=== PATIENT | male | born 1980 | race African-American/Black ===

== ENCOUNTER 2020-11-11 07:33 | Emergency (ER) | payer OTHER ==
[~2020-11-11] VITALS: Ht 182.9 cm; Wt 104.5 kg
[2020-11-11] MEDS ORDERED: NEXIUM40 M2 PO (07:47)
[2020-11-11] MEDS ORDERED: BYSTOLIC10 MG PO (07:47)
[2020-11-11] MEDS ORDERED: TOPAMAX100 MG PO (07:48)
[2020-11-11] MEDS ORDERED: BUSPIRONE HCL10 MG PO (07:48)
[2020-11-11 08:10] LABS: ABSOLUTE EOSINOPHILS 0.1 thou/uL (0.0-0.7); ABSOLUTE LYMPHOCYTES 2.1 thou/uL (0.8-5.3); ABSOLUTE MONOCYTES 0.4 thou/uL (0.0-1.2); BASOPHILS 0.5 %; EOSINOPHILS 1.6 %; HEMATOCRIT 42.4 % (42.0-52.0); HEMOGLOBIN 14.4 gm/dL (14.0-18.0); LYMPHOCYTES 31.5 %; MCH 29.9 pg (26.0-34.0); MCHC 34.1 g/dL (28.0-37.0); MCV 87.9 fL (80.0-100.0); MONOCYTES 6.7 %; MPV 7.2 fl. (7.2-11.1); NUCLEATED RBCS 0 /100WBC; PLATELET COUNT* 264 thou/uL (150-400); POLYS 59.7 %; RBC 4.82 mil/uL (4.50-6.00); RDW-CV 14.1 % (10.5-14.5); WBC 6.6 thou/uL (4.0-11.0)
[2020-11-11 08:19] LABS: ANION GAP 9 mmol/L (7-16); BUN 10 mg/dL (7-18); CHLORIDE 109 mmol/L (98-107); CO2 26 mmol/L (21-32); CREATININE 1.2 mg/dL (0.6-1.3); GLUCOSE 81 mg/dL (70-99); POTASSIUM 3.6 mmol/L (3.5-5.1); SODIUM 144 mmol/L (136-145)
[2020-11-11 08:30] LABS: ALBUMIN 3.5 g/dL (3.4-5.0); ALKALINE PHOSPHATASE 73 U/L (46-116); APTT 25.1 Seconds (25.0-31.3); INR 0.9; LIPASE 105 U/L (73-393); MAGNESIUM 2.3 mg/dL (1.8-2.4); NT-PRO BRAIN NAT PEPTIDE 72 pg/mL (<300); SGOT 15 U/L (15-37); SGPT 28 U/L (30-65); TOTAL BILIRUBIN < 0.1 mg/dL (<0.1-1.0); TOTAL PROTEIN 7.3 g/dL (6.4-8.2)
[2020-11-11 11:05] VITALS: BP 137/86
--- NOTE | 2020-11-13 13:43 | EKG ---
[place] [address] ELECTROCARDIOGRAM REPORT Name: CRISTINA MA Room: [facility]#: [id number] Admission: 11/11/20 Attend Phys: Discharge: 11/11/20 Date of : 84 Date of Service: 11/11/20 0738 Report #: [id number] THIS REPORT FOR: //name// [facility] ED Test Date: 2020-11-11 Test Time: 07:38:02 Pat Name: CRISTINA MA Department: Room: Gender: Stonehand: ALON : 1980 Requested By: Ayo Fletcher Order Number: [id number] MD: Raciel Cornejo Measurements Intervals [place] Rate: 85 P: 40 [place]: 139 QRS: 23 QRSD: 84 T: -6 QT: 341 QTc: 406 Interpretive Statements Sinus rhythm Baseline wander in lead(s) V3 No previous ECG available for comparison Electronically Signed On 11-13-2020 13:42:49 [employer]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
--- NOTE | 2020-11-13 13:43 | EKG ---
[place] [address] ELECTROCARDIOGRAM REPORT Name: CRISTINA MA Room: [facility]#: [id number] Admission: 11/11/20 Attend Phys: Discharge: 11/11/20 Date of : 84 Date of Service: 11/11/20 0946 Report #: [id number] THIS REPORT FOR: //name// [facility] ED Test Date: 2020-11-11 Test Time: 09:46:16 Pat Name: CRISTINA MA Department: Room: Gender: Podiatric Physician: ALON : 1980 Requested By: Ayo Fletcher Order Number: [id number] MD: Raciel Cornejo Measurements Intervals [place] Rate: 65 P: 13 [place]: 139 QRS: 28 QRSD: 84 T: 3 QT: 370 QTc: 385 Interpretive Statements Sinus rhythm Baseline wander in lead(s) V2 Compared to ECG 11/11/2020 07:38:02 No significant changes Electronically Signed On 11-13-2020 13:43:36 CUT OUT STITCHER by Raciel Cornejo [email or web address] <ELECTRONICALLY SIGNED> By: Raciel Cornejo MD, [facility] 11/13/20 1343 0946 0946 Raciel Cornejo MD, [facility] /EPI
== END 2020-11-11 11:07 | disposition left against medical advice (07) ==
LOC: M.ERS 07:33
PROVIDERS: Emergency Medicine Emergency Medical Services
DX: R07.89 Other chest pain (principal); I10 Essential (primary) hypertension; K21.9 Gastro-esophageal reflux disease without esophagitis; Z88.6 Allergy status to analgesic agent